=== PATIENT | female | born 1955 | race Caucasian/White ===

== ENCOUNTER 2020-07-15 08:59 | Day surgery (SDC) | payer MEDICAID, SELFPAY ==
[2020-07-09 09:37] VITALS: BMI 16.6
--- NOTE | 2020-07-11 10:15 | MHC.SHP ---
Pre-Procedural Eval Section A The patient is an INPATIENT: No The History & Physical has been completed within 30 days and I have reviewed it.: Yes Section B Chief Complaint: Cataract Left Eye Allergies: Allergies Allergy/AdvReac Type Severity Reaction Status Date / Time No Known Allergies Allergy Verified 07/09/20 09:43 Plan Diagnosis/Plan: Unchanged I have reviewed the history and physical and performed a pertinent physical examination on my patient. No changes have occurred unless specified.
--- NOTE | 2020-07-12 09:18 | P.CONAN_ITS ---
Documented by User: Brenda Mckeon 07/12/20 09:20 HPI - Anesthesia Eval Consult details Narrative: 64yo F for Cataract Extraction IOL Insertion PCP cleared No prev cataract on record [facility] Past Medical History Medical History Arthritis Depression Hard of hearing History of anxiety History of degenerative joint disease Hx of cerebral palsy Presence of dental bridge Surgical History Surgical History H/O colonoscopy History of hip replacement Social History Social History Smoking Status: Current some day smoker Cigarettes Per Day: 10 Years Smoked: 10 Smoked in Last 30 Days: Yes Use of substances other than those prescribed or required for medical reasons: No Advance Directives Information Provided: No Recently lost weight without trying: No Meds Allergies Allergy/AdvReac Type Severity Reaction Status Date / Time No Known Allergies Allergy Verified 07/15/20 10:13 Home Medications Medication Instructions Recorded Confirmed Type gabapentin 100 mg PO TID 07/09/20 07/09/20 History hydrocodone-acetaminophen 1 tab PO BID 07/09/20 07/09/20 History lorazepam 2 mg PO TID 07/09/20 07/09/20 History multivitamin 1 tab PO DAILY 07/09/20 07/09/20 History naproxen 500 mg PO BID PRN 07/09/20 07/09/20 History Exam Exam Date and Time: July 12, 202018 Height,Weight and Vital Signs: Height 5 ft 3 in Weight 42.638 kg Assessment and Plan Assessment Anesthesia Assessment: Chart Reviewed Documented by User: Mariza Burns 07/15/20 10:19 [facility] Past Medical History Medical History Arthritis Depression Hard of hearing History of anxiety History of degenerative joint disease Hx of cerebral palsy Presence of dental bridge Surgical History Surgical History H/O colonoscopy History of hip replacement Social History Social History Smoking Status: Current some day smoker Cigarettes Per Day: 10 Years Smoked: 10 Smoked in Last 30 Days: Yes Use of substances other than those prescribed or required for medical reasons: No Advance Directives Information Provided: No Recently lost weight without trying: No Meds Allergies Allergy/AdvReac Type Severity Reaction Status Date / Time No Known Allergies Allergy Verified 07/15/20 10:13 Home Medications Medication Instructions Recorded Confirmed Type gabapentin 100 mg PO TID 07/09/20 07/09/20 History hydrocodone-acetaminophen 1 tab PO BID 07/09/20 07/09/20 History lorazepam 2 mg PO TID 07/09/20 07/09/20 History multivitamin 1 tab PO DAILY 07/09/20 07/09/20 History naproxen 500 mg PO BID PRN 07/09/20 07/09/20 History Exam Airway Mallampati Class: III (Large upper central incisors) TM Dist: >3cm Neck ROM: Limited Loose/Missing/Broken Teeth: No Heart: RRR Lungs: CTA Assessment and Plan Assessment Anesthesia Assessment: Anesthesia Plan Discussed and Chart Reviewed Final Anesthetic Review NPO: Yes ASA Class: III Final Preanesthetic Review: Meds/Allgs Chart Reviewed, Consent Obtained/Reviewed and Anes Risks/Benef Reviewed Patient Risk: Intermediate Procedure Risk: Low Anesthetic Plan Anesthetic Plan: MAC: Disposition: Standard PACU
[2020-07-15 10:31] VITALS: BP 117/60; PULSE 56; RESP 16; TEMP 36.8; O2SAT 96
[2020-07-15] MEDS: Lactated Ringers 500 ML 50 ML IV (10:45)
[2020-07-15] MEDS: Tetracaine HCl/PF 0.5% Oph Sol 4 ML DROPS 1 DROP EYE-LEFT (10:46)
[2020-07-15] MEDS: Phenylephrine HCL 2.5% Oph SoL 2 ML BOTTLE 1 DROP EYE-LEFT ×3 (10:48→10:55)
[2020-07-15] MEDS: Tropicamide 1 % Ophth Sol 3 ML BTL 1 DROP EYE-LEFT ×3 (10:50→10:57)
--- NOTE | 2020-07-15 11:06 | HO.PNOPHT ---
Ophthalmology Procedure Procedure Date of Service: 07/15/20 Ophthalmology Viscoelastic: Healon Duet Dual Pack Pro Ophthalmology Lenses: TECGIANNA [id number] (20) Procedure Notes: PREOPERATIVE DIAGNOSIS: Decreased visual acuity left eye secondary to cataract POSTOPERATIVE DIAGNOSIS: Same PROCEDURE: Left cataract extraction with intraocular lens insertion SURGEON: Rudolph Mclain M.D. ANESTHESIA: Topical/MAC ESTIMATED BLOOD LOSS: None COMPLICATIONS: None After obtaining informed consent, the patient was brought to the operation room suite and placed in the supine position. After adequate sedation per anesthesia, topical drops of Tetracaine were given to the left eye. The eye was then prepped and draped in the usual sterile fashion. The operating room microscope was then positioned over the operative eye and a lid speculum placed. A paracentesis was created. Viscoelastic was then instilled into the anterior chamber. A three plane incision was then created temporally, utilizing a 2.85 mm keratome. Capsulotomy forceps were then utilized to create a circular tear capsulotomy. Hydrodissection and hydrodelineation were carried out until adequate mobilization of the nucleus occurred. Phacoemulsification was then utilized to remove the dense central nucleus followed by removal of the cortical material utilizing the automated aspiration irrigation unit. Viscoat elastic was instilled into the posterior capsular bag followed by placement of a posterior chamber intraocular lens without difficulty. The residual Viscoat elastic was then removed utilizing the automated IA machine. The wound was check and found to be watertight. The patient tolerated the procedure well and the lid speculum was removed. Intracameral injection of Vigamox 0.1 mL followed by a subtenon injection of Kenalog-40 0.2 mL were administered. The patient will be seen in the a.m.
[2020-07-15 11:31] VITALS: BP 111/61; PULSE 63; RESP 16; TEMP 36.6; O2SAT 96
--- NOTE | 2020-07-15 11:32 | HO.POSTANES ---
Post Anesthesia Evaluation Post Anesthesia Evaluation Vital Signs: Vital Signs Temp Pulse Resp BP Pulse Ox 07/15/20 10:31 98.2 F 56 16 117/60 96 Anesthesia: Monitored Mental Status: Awake Pain Control: Satisfactory Nausea/Vomiting: None Hydration: Adequate Anesthesia-Related Issues: No Anes. Related Issues
== END 2020-07-15 11:50 | disposition home or self-care (01) ==
PROVIDERS: PCP Family Medicine; Visit Provider Ophthalmology
PROC: (CPT 66985; principal; 2020-07-15 12:00)
DX: H25.12 Age-related nuclear cataract, left eye (principal); H52.4 Presbyopia; H40.013 Open angle with borderline findings, low risk, bilateral; G80.9 Cerebral palsy, unspecified; M19.90 Unspecified osteoarthritis, unspecified site; H91.90 Unspecified hearing loss, unspecified ear; F32.9 Major depressive disorder, single episode, unspecified; Z96.642 Presence of left artificial hip joint; F17.210 Nicotine dependence, cigarettes, uncomplicated; Z79.899 Other long term (current) drug therapy
CPT/HCPCS: 66984; J2250; J3010; J3300; V2632

== ENCOUNTER 2020-07-29 07:07 | Day surgery (SDC) | payer MEDICAID, SELFPAY ==
[2020-07-09 09:47] VITALS: BMI 16.6
--- NOTE | 2020-07-25 14:52 | MHC.SHP ---
Pre-Procedural Eval Section A The patient is an INPATIENT: No The History & Physical has been completed within 30 days and I have reviewed it.: Yes Section B Chief Complaint: Cataract Right Eye Allergies: Allergies Allergy/AdvReac Type Severity Reaction Status Date / Time No Known Allergies Allergy Verified 07/15/20 10:13 Plan Diagnosis/Plan: Unchanged I have reviewed the history and physical and performed a pertinent physical examination on my patient. No changes have occurred unless specified.
--- NOTE | 2020-07-26 09:00 | HO.ANESPROP2 ---
Documented by User: Brenda Mckeon 07/26/20 09:03 HPI - Anesthesia Eval Consult details Narrative: 64yo F for Cataract Extraction IOL Insertion, Right PCP cleared Left eye 07/15/20 with MAC: fent 25, midaz 1 [facility] Past Medical History Medical History Arthritis Depression Hard of hearing History of anxiety History of degenerative joint disease Hx of cerebral palsy Presence of dental bridge Surgical History Surgical History H/O colonoscopy History of hip replacement Social History Social History Smoking Status: Current some day smoker Cigarettes Per Day: 10 Years Smoked: 10 Smoked in Last 30 Days: Yes Use of substances other than those prescribed or required for medical reasons: No Advance Directives Information Provided: No Recently lost weight without trying: No Meds Allergies Allergy/AdvReac Type Severity Reaction Status Date / Time No Known Allergies Allergy Verified 07/15/20 10:13 Home Medications Medication Instructions Recorded Confirmed Type gabapentin 100 mg PO TID 07/09/20 07/09/20 History hydrocodone-acetaminophen 1 tab PO BID 07/09/20 07/09/20 History lorazepam 2 mg PO TID 07/09/20 07/09/20 History multivitamin 1 tab PO DAILY 07/09/20 07/09/20 History naproxen 500 mg PO BID PRN 07/09/20 07/09/20 History Exam Exam Date and Time: July 26, 2020 0900 Height,Weight and Vital Signs: Height 5 ft 3 in Weight 42.638 kg Assessment and Plan Assessment Anesthesia Assessment: Chart Reviewed Documented by User: Mariza Burns 07/29/20 08:03 [facility] Past Medical History Medical History Arthritis Depression Hard of hearing History of anxiety History of degenerative joint disease Hx of cerebral palsy Presence of dental bridge Surgical History Surgical History H/O colonoscopy History of hip replacement Social History Social History Smoking Status: Current some day smoker Cigarettes Per Day: 10 Years Smoked: 10 Smoked in Last 30 Days: Yes Use of substances other than those prescribed or required for medical reasons: No Advance Directives Information Provided: No Recently lost weight without trying: No Meds Allergies Allergy/AdvReac Type Severity Reaction Status Date / Time No Known Allergies Allergy Verified 07/15/20 10:13 Home Medications Medication Instructions Recorded Confirmed Type gabapentin 100 mg PO TID 07/09/20 07/09/20 History hydrocodone-acetaminophen 1 tab PO BID 07/09/20 07/09/20 History lorazepam 2 mg PO TID 07/09/20 07/09/20 History multivitamin 1 tab PO DAILY 07/09/20 07/09/20 History naproxen 500 mg PO BID PRN 07/09/20 07/09/20 History Exam Airway Mallampati Class: I TM Dist: >3cm Neck ROM: Full Loose/Missing/Broken Teeth: No Heart: RRR Lungs: CTA Assessment and Plan Assessment Anesthesia Assessment: Anesthesia Plan Discussed and Chart Reviewed Final Anesthetic Review NPO: Yes ASA Class: III Final Preanesthetic Review: Meds/Allgs Chart Reviewed, Consent Obtained/Reviewed and Anes Risks/Benef Reviewed Patient Risk: Intermediate Procedure Risk: Low Anesthetic Plan Anesthetic Plan: MAC: Disposition: Standard PACU
[2020-07-29] MEDS: Tetracaine HCl/PF 0.5% Oph Sol 4 ML DROPS 1 DROP EYE-RIGHT ×2 (07:57)
[2020-07-29 07:58] VITALS: BP 116/67; PULSE 71; RESP 18; TEMP 36.4; O2SAT 97
[2020-07-29] MEDS: Phenylephrine HCL 2.5% Oph SoL 2 ML BOTTLE 1 DROP EYE-RIGHT ×3 (07:58→08:02)
[2020-07-29] MEDS: Tropicamide 1 % Ophth Sol 3 ML BTL 1 DROP EYE-RIGHT ×3 (07:58→08:02)
[2020-07-29] MEDS: Lactated Ringers 500 ML 50 ML IV (08:14)
--- NOTE | 2020-07-29 09:29 | HO.PNOPHT ---
Ophthalmology Procedure Procedure Date of Service: 07/29/20 Ophthalmology Viscoelastic: Shy Felicianot Dual Pack Pro Ophthalmology Lenses: TECGIANNA [id number] (22) Procedure Notes: PREOPERATIVE DIAGNOSIS: Decreased visual acuity right eye secondary to cataract POSTOPERATIVE DIAGNOSIS: Same PROCEDURE: Right cataract extraction with intraocular lens insertion SURGEON: Rudolph Mclain M.D. ANESTHESIA: Topical/MAC ESTIMATED BLOOD LOSS: None COMPLICATIONS: None After obtaining informed consent, the patient was brought to the operating room suite and placed in the supine position. After adequate sedation per anesthesia, topical drops of Tetracaine were given to the right eye. The eye was then prepped and draped in the usual sterile fashion. The operating room microscope was then positioned over the operative eye and a lid speculum placed. A paracentesis was created. Viscoelastic was then instilled into the anterior chamber. A three plane incision was then created temporally, utilizing a 2.85 mm keratome. Capsulotomy forceps were then utilized to create a circular tear capsulotomy. Hydrodissection and hydrodelineation were carried out until adequate mobilization of the nucleus occurred. Phacoemulsification was then utilized to remove the dense central nucleus followed by removal of the cortical material utilizing the automated aspiration irrigation unit. Viscoelastic was instilled into the posterior capsular bag followed by placement of a posterior chamber intraocular lens without difficulty. The residual Viscoelastic was then removed utilizing the automated IA machine. The wound was checked and found to be watertight. The patient tolerated the procedure well and the lid speculum was removed. Intracameral injection of Vigamox 0.1 mL followed by a subtenon injection of Kenalog-40 0.2 mL were administered. The patient will be seen in the a.m.
[2020-07-29 09:30] VITALS: BP 97/60; PULSE 67; RESP 17; TEMP 36.4; O2SAT 99
--- NOTE | 2020-07-29 09:45 | HO.POSTANES ---
Post Anesthesia Evaluation Post Anesthesia Evaluation Vital Signs: Vital Signs Temp Pulse Resp BP Pulse Ox 07/29/20 09:30 97.5 F 67 17 97/60 99 07/29/20 07:58 97.6 F 71 18 116/67 97 Anesthesia: Monitored Mental Status: Awake Pain Control: Satisfactory Nausea/Vomiting: None Hydration: Adequate Anesthesia-Related Issues: No Anes. Related Issues
== END 2020-07-29 10:23 | disposition home or self-care (01) ==
PROVIDERS: PCP Family Medicine; Visit Provider Ophthalmology
PROC: (CPT 66985; principal; 2020-07-29 09:10)
DX: H25.11 Age-related nuclear cataract, right eye (principal); H52.4 Presbyopia; H40.013 Open angle with borderline findings, low risk, bilateral; H31.001 Unspecified chorioretinal scars, right eye; G80.9 Cerebral palsy, unspecified; F17.210 Nicotine dependence, cigarettes, uncomplicated; Z79.899 Other long term (current) drug therapy
CPT/HCPCS: 66984; J2250; J3010; J3300; V2632